=== PATIENT | female | born 1995 | race Caucasian/White ===

== ENCOUNTER 2020-07-22 13:35 | Inpatient (IN) | payer SELFPAY ==
[~2020-07-22] VITALS: Ht 167 cm; Wt 84.8 kg
[2020-07-22] MEDS ORDERED: OXYTOCIN 30 UNITS/LACT RINGERS 500 ML IV ONE (14:42)
[2020-07-22] MEDS ORDERED: RINGERS SOLUTION,LACTATED 1,000 ML IV SCH (14:42)
[2020-07-22] MEDS ORDERED: RINGERS SOLUTION,LACTATED 1,000 ML IV PRN (14:42)
[2020-07-22] MEDS ORDERED: METOCLOPRAMIDE HCL 5 MG/ML 2 ML VIAL IVP PRN (14:45)
[2020-07-22] MEDS ORDERED: FentaNYL CITRATE-PF 100 MCG/2 ML VIAL IVP PRN (14:45)
[2020-07-22] MEDS ORDERED: METHYLERGONOVINE MALEATE 0.2 MG/ML VIAL IM PRN (14:45)
[2020-07-22] MEDS ORDERED: AMPICILLIN SODIUM 2 GM/NS 100 ML IV ONE (14:45)
[2020-07-22] MEDS ORDERED: CITRIC ACID/SODIUM CITRATE 30 ML SOLUTION UDCUP PO PRN (14:45)
[2020-07-22] MEDS ORDERED: OXYTOCIN 30 UNITS/LACT RINGERS 500 ML IV PRN (15:00)
[2020-07-22] MEDS ORDERED: DiphenhydrAMINE HCL 50 MG/ML VIAL IVP PRN (16:15)
[2020-07-22] MEDS ORDERED: NALBUPHINE HCL 10 MG/ML VIAL IVP PRN (16:15)
[2020-07-22] MEDS ORDERED: ROPIVACAINE HCL/PF 0.2% 100 ML ED PRN (16:15)
[2020-07-22] MEDS ORDERED: ONDANSETRON HCL 4 MG/2 ML VIAL IVP PRN (16:15)
[2020-07-22] MEDS ORDERED: BENZOCAINE 20%/MENTHOL 56 GM SPRAY CANISTER TP PRN (16:30)
[2020-07-22] MEDS ORDERED: OxyCODONE HCL/ACETAMINOPHEN 5-325 MG TABLET PO PRN ×2 (16:30)
[2020-07-22] MEDS ORDERED: IBUPROFEN 800 MG TABLET PO PRN (16:30)
[2020-07-22] MEDS ORDERED: GLYCERIN/WITCH HAZEL LEAF 40 PADS JAR TP PRN (16:30)
[2020-07-22] MEDS ORDERED: LANOLIN 7 GM OINTMENT TP PRN (16:30)
[2020-07-22 17:03] VITALS: BP 118/73
[2020-07-22 17:34] LABS: BASOPHILS % (AUTO) 0.3 % (0.0-2.0); EOSINOPHILS % (AUTO) 0.4 % (1.0-6.0); HEMATOCRIT 37.7 % (36-46); HEMOGLOBIN 12.4 g/dL (12.0-16.0); LYMPHOCYTES # (AUTO) 2.2 K/uL (1.0-4.8); LYMPHOCYTES % (AUTO) 15.6 % (22.0-44.0); MEAN CORPUSCULAR HEMOGLOBIN 29.8 pg (26.0-34.0); MEAN CORPUSCULAR VOLUME 90 fL (80-100); MONOCYTES # (AUTO) 0.8 K/uL (0.1-1.0); MONOCYTES % (AUTO) 5.6 % (2.0-9.0); NEUTROPHILS # (AUTO) 11.2 K/uL (1.8-7.7); NEUTROPHILS % (AUTO) 78.1 % (40.0-70.0); PLATELET COUNT (AUTO) 165 K/uL (150-450); RED BLOOD CELL COUNT(AUTO) 4.18 MIL/uL (4.00-5.20); RED CELL DISTRIBUTION WIDTH 14.1 % (11.5-14.5)
[2020-07-22] MEDS ORDERED: OXYGEN THERAPY IH SCH (20:00)
[2020-07-23 04:46] LABS: BASOPHILS % (AUTO) 0.4 % (0.0-2.0); EOSINOPHILS % (AUTO) 1.1 % (1.0-6.0); HEMATOCRIT 34.7 % (36-46); HEMOGLOBIN 11.6 g/dL (12.0-16.0); LYMPHOCYTES # (AUTO) 3.2 K/uL (1.0-4.8); LYMPHOCYTES % (AUTO) 24.7 % (22.0-44.0); MEAN CORPUSCULAR HEMOGLOBIN 29.8 pg (26.0-34.0); MEAN CORPUSCULAR HGB CONC 33.4 G/dL (31.0-37.0); MEAN CORPUSCULAR VOLUME 89 fL (80-100); MONOCYTES # (AUTO) 0.9 K/uL (0.1-1.0); MONOCYTES % (AUTO) 6.9 % (2.0-9.0); NEUTROPHILS # (AUTO) 8.7 K/uL (1.8-7.7); NEUTROPHILS % (AUTO) 66.9 % (40.0-70.0); PLATELET COUNT (AUTO)-OB 158 K/uL (150-450); RED BLOOD CELL COUNT(AUTO) 3.88 MIL/uL (4.00-5.20)
[2020-07-23] MEDS: MAGNESIUM HYDROXIDE SUSPENSION 30 ML UDCUP PO SCH (21:33)
[2020-07-24] MEDS: MAGNESIUM HYDROXIDE SUSPENSION 30 ML UDCUP PO SCH (09:23)
[2020-07-24] MEDS ORDERED: DOCU-275 PO (15:07)
[2020-07-24] MEDS ORDERED: PREN-217 PO (15:07)
[2020-07-24] MEDS ORDERED: IBUP-2071 PO (15:07)
== END 2020-07-24 16:25 | disposition home or self-care (01) | DRG 807 ==
LOC: OBSVTOIN 13:35 → 4S 13:35
PROVIDERS: ADMIT Obstetrics & Gynecology; ATTEND Obstetrics & Gynecology
PROC: 10E0XZZ Delivery of Products of Conception, External Approach (ICD-10-PCS; principal; 2020-07-22)
PROC: 3E0R3BZ Introduction of Anesthetic Agent into Spinal Canal, Percutaneous Approach (ICD-10-PCS; 2020-07-22)
PROC: 00HU33Z Insertion of Infusion Device into Spinal Canal, Percutaneous Approach (ICD-10-PCS; 2020-07-22)
PROC: 30233S1 Transfusion of Nonautologous Globulin into Peripheral Vein, Percutaneous Approach (ICD-10-PCS; 2020-07-23)
DX: O80 Encounter for full-term uncomplicated delivery (principal); Z37.0 Single live birth; Z3A.37 37 weeks gestation of pregnancy
CPT/HCPCS: 80307; 80324; 85461; 86592; 86762; 86850; 86900; 86901; 86923; 87340; 87426